=== PATIENT | male | born 1955 | race Caucasian/White ===

== ENCOUNTER 2018-03-10 06:57 | Day surgery (SDC) | payer OTHER ==
--- NOTE | 2018-03-10 10:15 | CP.SDSHP ---
Same Day Surgery H & P - History Proposed Procedure: egd Pre-Op Diagnosis: epigastric pain. heartburn. 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 heartburn. dysphagia Pt. Evaluated Today:Candidate for Anesthesia & Procedure: Yes - Date & Time Date: 03/10/18 Time: 10:14 Short Stay Discharge - Short Stay Discharge Admitting Diagnosis/Reason for Visit: DYSPHAGIA, UNSPECIFIED, EPIGASTRIC PAIN, HEARTBURN Disposition: HOME/ ROUTINE
[2018-03-10] MEDS ORDERED: Propofol 10 mg/ml Inj (20 ML) ONE (10:16)
[2018-03-10] MEDS ORDERED: Etomidate 20 mg/10ml Inj IV ONE (10:17)
[2018-03-10] MEDS ORDERED: Pantoprazole 40 mg EC Tab PO ONE (10:30)
[2018-03-10 12:26] VITALS: RESP 19
[2018-03-10 12:34] VITALS: BP 129/69; PULSE 69; TEMP 97.3; O2SAT 99
== END 2018-03-10 11:35 | disposition home or self-care (01) ==
LOC: C.ENDO 06:57
PROVIDERS: ATTEND Internal Medicine Gastroenterology
DX: K21.0 Gastro-esophageal reflux disease with esophagitis (principal); K29.50 Unspecified chronic gastritis without bleeding; E78.5 Hyperlipidemia, unspecified; R13.10 Dysphagia, unspecified; I25.10 Atherosclerotic heart disease of native coronary artery without angina pectoris; I10 Essential (primary) hypertension; J45.909 Unspecified asthma, uncomplicated; E11.9 Type 2 diabetes mellitus without complications; Z95.1 Presence of aortocoronary bypass graft
CPT/HCPCS: 43239; 82948; 88305; 88312; 88342; J2704

== ENCOUNTER 2018-04-14 06:50 | Day surgery (SDC) | payer OTHER ==
[2018-04-13 13:23] VITALS: BMI 28.5
[2018-04-14 07:35] VITALS: O2SAT 100
[2018-04-14] MEDS ORDERED: Propofol 10 mg/ml Inj (20 ML) ONE (08:37)
[2018-04-14 09:08] VITALS: TEMP 97
[2018-04-14 09:54] VITALS: BP 150/69; PULSE 50; RESP 6
== END 2018-04-14 09:53 | disposition home or self-care (01) ==
LOC: C.ENDO 06:50
PROVIDERS: ATTEND Internal Medicine Gastroenterology
DX: Z12.11 Encounter for screening for malignant neoplasm of colon (principal); D12.2 Benign neoplasm of ascending colon; K64.8 Other hemorrhoids
CPT/HCPCS: 45385; 82948; 88305; J2001; J2704